=== PATIENT | female | born 1980 | race Caucasian/White ===

== ENCOUNTER 2025-05-20 15:18 | Emergency (ER) | payer BC, OTHER ==
[~2025-05-20] VITALS: Ht 162.6 cm; Wt 63.5 kg
[2025-05-20 15:25] VITALS: BP 165/101
[2025-05-20] MEDS ORDERED: HYDR-3972 PO (17:02)
[2025-05-20] MEDS ORDERED: SULF1TAB48 PO (17:02)
[2025-05-20] MEDS: LIDOCAINE HCL 1% 20 ML VIAL TP ONE (17:14)
[2025-05-20] MEDS ORDERED: SULFAMETH/TRIMETH 800/160 MG TABLET ONE (17:18)
[2025-05-20] MEDS: HYDROCODONE/APAP 5-325MG TABLET PO ONE (17:18)
[2025-05-20] MEDS ORDERED: HYDROCODONE/APAP 5-325MG TABLET ONE (17:18)
[2025-05-20] MEDS: SULFAMETH/TRIMETH 800/160 MG TABLET PO ONE (17:18)
[2025-05-20 18:04] VITALS: BP 138/89; TEMP 98; O2SAT 99
== END 2025-05-20 18:05 | disposition home or self-care (01) ==
LOC: ER 15:18
DX: L02.11 Cutaneous abscess of neck (principal); Z86.14 Personal history of Methicillin resistant Staphylococcus aureus infection
CPT/HCPCS: A4606; A4663

== ENCOUNTER 2025-05-23 13:59 | Emergency (ER) | payer OTHER ==
[~2025-05-23] VITALS: Ht 162.6 cm; Wt 63.5 kg
[~2025-05-23 13:59] MED LIST: HYDR-3972 PO; SULF1TAB48 PO
[2025-05-23 14:15] VITALS: BP 120/74
[2025-05-23] MEDS ORDERED: LIDOCAINE 2%-EPI 1:100,000 20 ML VIAL ONE (14:53)
[2025-05-23] MEDS: LIDOCAINE 2%-EPI 1:100,000 20 ML VIAL IJ ONE (15:37)
[2025-05-23] MEDS ORDERED: NEOMY/BACITRA/POLYMYXIN B OINT UD PACKET TP ONE (16:04)
[2025-05-23] MEDS: NEOMY/BACITRA/POLYMYXIN B OINT UD PACKET TP ONE (16:05)
[2025-05-23 16:33] VITALS: BP 113/69; O2SAT 99
== END 2025-05-23 16:33 | disposition home or self-care (01) ==
LOC: ER 14:20
DX: L02.11 Cutaneous abscess of neck (principal); Z98.890 Other specified postprocedural states
CPT/HCPCS: A4606; A4663

== ENCOUNTER 2025-05-28 19:48 | Emergency (ER) | payer OTHER ==
[~2025-05-28] VITALS: Ht 162.6 cm; Wt 65.8 kg
[2025-05-28 20:06] VITALS: BP 126/91
[2025-05-28] MEDS ORDERED: CLIN300C12 PO (20:24)
[2025-05-28] MEDS ORDERED: CLINDAMYCIN 900MG/D5W 100ML IVPB **ER PYXIS ONLY IJ ONE (20:35)
[2025-05-28] MEDS: CLINDAMYCIN PHOSPHATE IV 900 MG in IV DEXTROSE 5% 100 ML IV ONE (20:36)
[2025-05-28 21:19] VITALS: BP 125/84; O2SAT 98
[2025-05-31] MEDS ORDERED: SULF1TAB48 PO (15:59)
== END 2025-05-28 21:19 | disposition home or self-care (01) ==
LOC: ER 19:48
DX: L02.11 Cutaneous abscess of neck (principal); Z48.02 Encounter for removal of sutures; Z86.14 Personal history of Methicillin resistant Staphylococcus aureus infection; Z88.7 Allergy status to serum and vaccine
CPT/HCPCS: 99284; 96365; 87070; J3490 ×2; 87077; A4606; A4663

== ENCOUNTER 2025-06-03 10:23 | Emergency (ER) | payer OTHER ==
[~2025-06-03] VITALS: Ht 162.6 cm; Wt 61.2 kg
[~2025-06-03 10:23] MED LIST changes: +CLIN-188 PO
[2025-06-03 10:33] VITALS: BP 152/81
[2025-06-03 11:12] VITALS: BP 152/81; TEMP 98; O2SAT 99
== END 2025-06-03 11:12 | disposition home or self-care (01) ==
LOC: ER 10:23
DX: L03.221 Cellulitis of neck (principal); Z88.7 Allergy status to serum and vaccine
CPT/HCPCS: A4606; A4663